=== PATIENT | female | born 1935 | race African-American/Black ===

== ENCOUNTER 2021-06-16 08:03 | Emergency (ER) | payer MEDICARE, MEDICAID ==
[2021-06-16] MEDS ORDERED: EPINEPHrine 1 MG/10 ML Abboject SYRINGE ONE (08:12)
[2021-06-16] MEDS ORDERED: Calcium Chloride 1 GM/10 ML Abboject SYRINGE ONE (08:12)
[2021-06-16] MEDS ORDERED: Sodium Bicarb 50 MEQ/50 ML Abboject 8.4% SYRINGE ONE (08:12)
== END 2021-06-16 08:12 | disposition expired ==
LOC: EDBD 08:03 → ERS 08:03
DX: I46.9 Cardiac arrest, cause unspecified (principal)
CPT/HCPCS: 31500; 92950; 96374; 96375; 96376; J0171